=== PATIENT | female | born 1995 | race Caucasian/White ===

== ENCOUNTER → 2021-08-28 | Outpatient (CLI) | payer OTHER, SELFPAY ==
[2021-08-28 12:23] LABS: Hemoglobin A1c 5.2 % (3.8-5.6)
[2021-08-28 12:48] LABS: HIV - WCH Non-Reactive (Nonreactive); Hepatitis B Surface Antibody Non-Reactive; Hepatitis B Surface Antigen Non-Reactive (Nonreactive); Progesterone Level 1.04 ng/mL (See Comment); Rubella IgG Reactive (Nonreactive); Syphilis Antibodies Non-reactive; Vitamin D,25 Hydroxy 25.4 ng/mL
[2021-08-31 18:35] LABS: Testosterone Free 3.1 pg/mL (0.0-4.2); V-Zoster IgG (Immunity) 612 index (Immune >165)
== END | disposition home or self-care (01) ==
LOC: WOBLAB 10:43
PROVIDERS: Visit Provider Student in an Organized Health Care Education/Training Program
DX: N97.9 Female infertility, unspecified (principal)
CPT/HCPCS: 36415; 82306; 83036; 84144; 84402; 84443; 86703; 86706; 86762; 86780; 86787; 87340